=== PATIENT | female | born 1975 | race Caucasian/White ===

== ENCOUNTER 2016-06-07 19:27 | Inpatient (IN) | payer OTHER ==
--- NOTE | ~2016-06-07 | CN ---
Consultation Report [facility] [address] [place]. [address] NAME: CLAYTON BOSWELL : 71 STATUS : ADM IN PAT#: [id number] AGE: 40 ADM/REG DATE : 06/07/16 MR#: [id number] REPORT SERV DATE: 06/08/16 DICTATED BY: HE PASTOR DATE: 06/08/16 REPORT STATUS : Draft TRANSCRIBED BY: MODL DATE: 06/08/16 GI CONSULTATION DATE OF CONSULTATION: 06/08/2016 REASON FOR CONSULTATION: Evaluation and management of abdominal pain, abnormal CT scan. HISTORY OF PRESENT ILLNESS: Ms. Boswell is a very pleasant 40-year-old, female patient, who was admitted to [facility] on the with a chief complaint of abdominal pain. The patient gives a history of symptom onset was actually December 2015 with some vague intermittent abdominal discomfort. She states that it progressively worsened. She saw her primary care provider in February when she had a routine yearly physical. She mentioned this to her provider. She stated at that time she would have abdominal pain. If she could not make it to the bathroom, she would throw up. She states that she has had a change in her bowel habits with her having to go more often, but she states that she has not had any diarrhea or constipation. There has been normal formed stool. She states that some days she has small frequent bowel movements. Other day, she has very large bowel movements. She has seen some bright red blood per rectum, but attributed this to hemorrhoids as that is what typically happen when she was with her children, so therefore she thought that was all secondary to hemorrhoids. She states that her appetite has changed as well as she had changed to what she was eating thinking that it could be contributing to her abdominal discomfort. She states that her weight is stable. She has not had fever or chills, but secondary to progression of her abdominal pain, she went to the emergency room last Wednesday at [facility]. She had a CT scan done there. She had a contrast exam here on 06/07/2016. On that exam, it showed a 3 cm long circumferential mass-like lesion at the mid sigmoid colon suspicious for malignancy. No bowel obstruction was seen along with this. She had small volume ascites in the pelvis of uncertain clinical significance, but could represent some early malignant ascites as well as some multifocal soft tissue nodular densities throughout the anterior mesentery and probably involving the inferior omentum largest measuring 4.5 x 2.3 x 3.2 cm which was suspicious for metastatic disease. The patient had a CEA level of 66.8, CA 19-9 level of 90.9. She was admitted secondary to intractable pain. She was supposed to be seen in the office today by Dr. Justin Johns's nurse practitioner, Tania Nicole; however, secondary to the pain, she came to [facility]. I have seen the patient. I have discussed with her colonoscopy. She feels like she can prep for the exam. I did discuss risks, benefits, alternatives, and complications with her to include, but not limited to risk of bleeding, perforation, infection, reaction to medication, as well as cardiac and pulmonary side effects. She gives consent to proceed. PAST MEDICAL HISTORY: Positive for mitral valve prolapse, migraine headaches, depression, anxiety, degenerative joint disease, osteoarthritis, and tobacco abuse. PAST SURGICAL HISTORY: Right and left knee scoping, carpal tunnel surgery, as well as tubal ligation. Consultation Report [address] [place]. [address] NAME: CLAYTON BOSWELL : 71 STATUS : ADM IN [facility]#: [id number] AGE: 40 ADM/REG DATE : 06/07/16 MR#: [id number] REPORT SERV DATE: 06/08/16 DICTATED BY: HE PASTOR DATE: 06/08/16 REPORT STATUS : Draft TRANSCRIBED BY: SAW DATE: 06/08/16 SOCIAL HISTORY: Positive for tobacco. Negative for alcohol. Negative for illicits. She is employed. She has four biological children and one stepchild. FAMILY HISTORY: Colon polyps in her mother as well as diverticulosis. ALLERGIES: NO KNOWN ALLERGIES. HOME MEDICATIONS: Xanax, Bentyl, [place], Afrin, Topamax, Effexor. REVIEW OF SYSTEMS: A 10-point review of systems has been obtained with pertinent positives being addressed in the history of present illness. PERTINENT LABORATORY DATA: Sodium 140, potassium 3.6, BUN is 6, creatinine 1. White count 9.1, hemoglobin 13.6, hematocrit is 40.7, platelet count 255. INR of 1.1. Albumin 3.4. CEA 66.8. CA 19-9 of 90.9. PHYSICAL EXAMINATION: VITAL SIGNS: Temperature is 98.7, pulse 68, respirations 18, blood pressure 104/58. NEURO: Reveals an alert, female, resting in bed with no focal deficits. GENERAL: Cooperative, in no apparent distress. Awake, alert, oriented x3. HEAD, EARS, EYES, NOSE, AND THROAT: Anicteric. Pupils equal, round, reactive to light, and accommodation. Normocephalic and atraumatic. NECK: No JVD. No palpable nodes. LUNGS: Clear anteriorly with normal respiratory effort exhibited. Equal expansion. CARDIOVASCULAR SYSTEM: Regular rate and rhythm. S1 and S2. No murmurs, rubs, gallops, S3, or S4 appreciated. ABDOMEN: Soft, but mildly distended with moderate diffuse tenderness to palpation. Hypoactive bowel sounds in all four quadrants. EXTREMITIES: No edema. Normal distal pulses. SKIN: Warm, dry, and intact. ASSESSMENT: 1. Sigmoid colon mass with questionable mesenteric implants by CT scan. 2. Abdominal pain. 3. Tobacco abuse. 4. Family history of colon polyps. 5. Elevated CA level. PLAN: 1. Clear liquid diet. 2. Colonoscopy on the . 3. Check a CA-125 level. 4. We will consult Dr. Perales at patient's request after colonoscopy is complete. Consultation Report [address] [place]. [address] NAME: CLAYTON BOSWELL : 71 STATUS : ADM IN [facility]#: [id number] AGE: 40 ADM/REG DATE : 06/07/16 MR#: [id number] REPORT SERV DATE: 06/08/16 DICTATED BY: HE PASTOR DATE: 06/08/16 REPORT STATUS : Draft TRANSCRIBED BY: SAW DATE: 06/08/16 5. We will follow up after colonoscopy with other recommendations. DIA/SAW RA Vogel / [id number] CC: Александр Blackman M.D.
--- NOTE | ~2016-06-07 | HP ---
History And Physical [address] [place]. [address] NAME: CLAYTON ZARATE : 71 STATUS : ADM IN PAT#: [id number] AGE: 40 ADM/REG DATE : 06/07/16 MR#: [id number] REPORT SERV DATE: 06/08/16 DICTATED BY: SKYLAR MCQUEEN DATE: 06/07/16 REPORT STATUS : Draft TRANSCRIBED BY: MODL DATE: 06/07/16 DATE OF ADMISSION: 06/07/2016 CHIEF COMPLAINT: Increased abdominal pain for about two weeks getting progressively worse over the last couple of days and a new diagnosed colonic mass on a CT scan. HISTORY OF PRESENT ILLNESS: This is a very pleasant 40-year-old female. She is a patient of Dr. John Mcgrath, her primary care provider. She has a history of migraine headaches, mitral valve prolapse, tobacco abuse, depression, and anxiety disorder. That she is telling me that for about a couple of months she has changes in her bowel habits, no really melena or hematochezia. She does have a history of hemorrhoidal bleed, and she occasionally was intermittently having some red blood per rectum, but for about two weeks, she started to experience left lower abdominal pain which she got progressively worse this week. She went to [facility] on . They have done a CT scan of the abdomen and pelvis. She was told that she has a colon mass which possible might be cancer and she has been referred to her primary care provider, Dr. Mcgrath, who actually made an appointment with Dr. Justin Johns for 06/08/2016, to be evaluated. However, her abdominal pain became so severe and uncontrolled that she has to come to the hospital. There was no nausea or vomiting. No fever. No diarrhea, some constipation. No cough. No sputum production. No chest pain. No increasing shortness of breath. There was no loss of the weight. No recent hospitalization either. She has been evaluated in the emergency room and CT of the abdomen and pelvis with oral and IV contrast has been repeated and after initial evaluation, Hospitalist Service has been asked for admission, further evaluation, and treatment. PAST MEDICAL HISTORY: Significant for mitral valve prolapse, migraine headaches, tobacco abuse, depression with anxiety, degenerative joint disease, osteoarthritis. PAST SURGICAL HISTORY: Include right and left knee scope, carpal tunnel, and tubal ligation. SOCIAL HISTORY: She is a smoker for at least 50 years. No alcohol. No IV drugs. ALLERGIES: THE PATIENT DOES NOT HAVE ANY DRUG ALLERGIES. MEDICATIONS: At home would include Xanax, Bentyl, [place], Afrin, Topamax, and Effexor. REVIEW OF SYSTEMS: A 14-point review of systems has been obtained. FAMILY HISTORY: Significant for precancerous polyps as well as hypertension. REVIEW OF SYSTEMS: 14-point review of systems has been obtained and pertinent positive has been listed into the history of present illness. Otherwise, negative except those underlying above. PHYSICAL EXAMINATION: VITAL SIGNS: Currently: the Patient is afebrile. Blood pressure 132/77, heart rate 102, History And Physical [address] [place]. [address] NAME: CLAYTON ZARATE : 71 STATUS : ADM IN [facility]#: [id number] AGE: 40 ADM/REG DATE : 06/07/16 MR#: [id number] REPORT SERV DATE: 06/08/16 DICTATED BY: SKYLAR MCQUEEN DATE: 06/07/16 REPORT STATUS : Draft TRANSCRIBED BY: SAW DATE: 06/07/16 respiratory rate 16, and saturating 98% on room air. GENERAL: She is a very pleasant, somewhat anxious female, in no acute distress. She is alert and oriented x3. Nonfocal. She follows commands appropriately. HEENT: Show pupils equal, round, reactive to light. Extraocular movements intact. No JVD. No lymphadenopathy. No thyromegaly appreciated. CHEST: Eval shows bilateral air entry. Clear anteroposterior. No wheezes, crackles, or rhonchi appreciated. CARDIOVASCULAR: She has regular rate and rhythm. She is slightly tachycardic. S1, S2 positive. No S3, no S4. No murmurs, rubs, or gallops appreciated. ABDOMEN: Soft. There is tender on the left lower quadrant, but there is no guarding and no rebound. EXTREMITIES: No clubbing, cyanosis, or edema. NEUROLOGY: The patient is alert and oriented x3. Nonfocal. She follows commands appropriately. LABORATORY DATA: Labs from today include sodium 141, potassium 4.2, chloride 109, CO2 of 25, BUN 7, creatinine0.78, glucose is 98. Her albumin 3.6, globulin 3.9. Her total bilirubin 0.3, alkaline phosphatase 95, ALT 52, AST 42, lipase 67. Her white count is 9.2, hemoglobin 14.5, hematocrit 42.5, and platelets are 273. Her UA has been negative. There is a CT scan of the abdomen and pelvis with oral and IV contrast performed in the emergency room which does show that the patient has a 3 cm long circumferential mass-like lesion in the mid sigmoid colon. No bowel obstruction. No perforation. There is some retained fecal material proximal to the colon, small volume of ascites and multifocal soft tissue nodular densities throughout the anterior mesentery, probably involving the omentum suspicious for metastatic disease. There is diverticulosis, but no diverticulitis and small fat-containing umbilical hernia. ASSESSMENT AND PLAN: This is a very pleasant 40-year-old female, presenting to [facility] with abdominal pain with: 1. New diagnosis sigmoid mass with possible mesenteric implants. 2. Intractable abdominal pain secondary to sigmoid mass with possible mesenteric implants. 3. History of migraine headaches. 4. Depression with anxiety. 5. Tobacco abuse. PLAN: The patient is going to be admitted to Hospitalist Service. We are going to keep her on clear liquid diet for right now, IV fluids. We will check a CEA and provide symptomatic nausea and pain control. We are going to consult Dr. Justin Johns, Gastroenterology, for further recommendation. I talked personally with Dr. Hillary Burdick, Gastroenterology, who covers for Dr. Johns, which recommended for right now keep the patient on clear liquid diet and await Gastroenterology for evaluation in the morning. 1. Intractable abdominal pain secondary to above. We will provide pain control. 2. History of migraine headaches. We will continue her home medications. 3. Depression with anxiety. Continue her home medication p.r.n. Xanax. 4. Tobacco abuse. We are going to provide nicotine patch and tobacco cessation education has been provided to the patient as well. That has been discussed extensively with the History And Physical [address] [place]. [address] NAME: CLAYTON ZARATE : 71 STATUS : ADM IN PAT#: [id number] AGE: 40 ADM/REG DATE : 06/07/16 MR#: [id number] REPORT SERV DATE: 06/08/16 DICTATED BY: SKYLAR MCQUEEN DATE: 06/07/16 REPORT STATUS : Draft TRANSCRIBED BY: MODDolly DATE: 06/07/16 patient as well as the patient's . All the questions have been answered in full. Further workup and recommendation pending above. It is worthwhile to note that the patient is going to be followed up by Dr. Phil Kumar. CF/SAW Skylar Mcqueen M.D. / [id number] CC: Diallo Mcgrath M.D.
--- NOTE | ~2016-06-07 | CN ---
Consultation Report [facility] [address] [place]. [address] NAME: CLAYTON ZARATE : 71 STATUS : ADM IN [facility]#: [id number] AGE: 40 ADM/REG DATE : 06/07/16 MR#: [id number] REPORT SERV DATE: 06/09/16 DICTATED BY: JULIO STRANGE III DATE: 06/09/16 REPORT STATUS : Draft TRANSCRIBED BY: MODDolly DATE: 06/09/16 CONSULTATION NOTE DATE OF CONSULTATION: 06/09/2016 REASON FOR CONSULT: 1. Sigmoid colon mass. 2. Recommendation regarding surgical management. HISTORY OF PRESENT ILLNESS: I have been asked to see this 40-year-old female hospitalized for the above reasons. The patient was admitted through the emergency room on 06/07/2016 with increasing abdominal pain. The patient complains of severe abdominal pain, which began several months ago. She has had some rectal bleeding. She had a colonoscopy on this admission which shows an obstructing large mass in the sigmoid colon. The colonoscope could not pass through this. The patient has had some nausea and vomiting. She went to the emergency room at [facility] last week. This was because of severe abdominal pain. CT scan of the abdomen and pelvis at that institution shows sigmoid colon mass with nodularity in the peritoneum concerning for peritoneal carcinomatosis. The patient is scheduled to undergo colonoscopy this week, but her pain became so severe that she came to the emergency room. CT scan of the abdomen and pelvis was performed here, which shows again a 3 cm mass in the sigmoid colon with possible dilatation of the colon proximal to this, thought to be a malignant mass. There is noted to be a small amount of ascites in the pelvis with multiple nodular areas in the anterior mesentery and inferior omentum, the largest being 4.5 cm in size, concern for metastatic disease. Colonoscopy performed this admission shows a large partially obstructing fungating oozing mass in the sigmoid colon 25 cm proximal to the anus. The colonoscope could not pass proximal to this. PAST MEDICAL HISTORY: 1. Mitral valve prolapse. 2. Anxiety. 3. Bipolar disorder. 4. Migraine headaches. 5. Depression. 6. Degenerative joint disease. PAST SURGICAL HISTORY: Includes tubal ligation, bilateral knee scoping, and bilateral carpal tunnel syndrome release surgery. SOCIAL HISTORY: The patient is . She lives locally. She has five children. She has a history of tobacco abuse. Consultation Report [address] [facility] [place]. [address] NAME: CLAYTON ZARATE : 71 STATUS : ADM IN [facility]#: [id number] AGE: 40 ADM/REG DATE : 06/07/16 MR#: [id number] REPORT SERV DATE: 06/09/16 DICTATED BY: JULIO STRANGE III DATE: 06/09/16 REPORT STATUS : Draft TRANSCRIBED BY: SAW DATE: 06/09/16 MEDICATIONS: Folic acid, heparin, nicotine patch, Protonix, thiamine, Topamax, Effexor, Dilaudid, Zofran, Xanax, Bentyl, and Colace. ALLERGIES: NONE. FAMILY HISTORY: Positive for breast cancer. PHYSICAL EXAMINATION: GENERAL: This is a female, in no acute distress. She is alert and oriented x3. VITAL SIGNS: Blood pressure 124/60, pulse 76, and temperature 98.6. HEENT: Unremarkable. Cranial nerves II through XII are normal. LUNGS: Clear. CARDIAC: Normal. ABDOMEN: Soft and nontender. LABORATORY DATA: Colonoscopy and imaging are as above. CT scan of chest is pending. ASSESSMENT: 1. A 40-year-old female with large obstructing mass in the sigmoid colon, most likely malignant with carcinomatosis. 2. History of tobacco abuse. 3. Probable chronic obstructive pulmonary disease. PLAN: I have recommended sigmoid colectomy. Colostomy may be required if the patient's bowel prep does not appear to be adequate. This procedure, i.e., laparotomy with sigmoid colectomy, possible laparotomy, the risks, benefits, and alternatives, including but not limited to the risk for bleeding, infection, enterotomy, injury to any abdominal structure, postop small bowel obstruction, ileus, incisional hernia, dehiscence, anastomotic leak, requiring reoperation with colostomy, possible need for colostomy at the time of surgery, ureteral injury, and unforeseen complications including deep venous thrombosis, pulmonary embolus, myocardial infarction, stroke, pneumonia, and , have been fully explained to the patient and family prior to surgery. The fact that this is a major operation with risk for major morbidity and mortality has been explained. The expected length of recovery has been explained. The patient's questions have been answered. She clearly understands the risks and agrees to surgery as planned. CHUCKIE/SAW Julio Strange III, M.D. / [id number] Consultation Report [address] [place]. [address] NAME: CLAYTON ZARATE : 71 STATUS : ADM IN PAT#: [id number] AGE: 40 ADM/REG DATE : 06/07/16 MR#: [id number] REPORT SERV DATE: 06/09/16 DICTATED BY: JULIO STRANGE III DATE: 06/09/16 REPORT STATUS : Draft TRANSCRIBED BY: SAW DATE: 06/09/16 CC: Vernon Avendano M.D.
--- NOTE | ~2016-06-07 | DS ---
Discharge Summary [address] [facility] [place]. [address] NAME: CLAYTON ZARATE : 71 STATUS : DIS IN PAT#: [id number] AGE: 40 ADM/REG DATE : 06/07/16 MR#: [id number] REPORT SERV DATE: 06/16/16 DICTATED BY: NGA CABA DATE: 06/15/16 REPORT STATUS : Draft TRANSCRIBED BY: SAW DATE: 06/15/16 ADMISSION DATE: 06/07/2016 DISCHARGE DATE: 06/15/2016 DISCHARGE DIAGNOSES: 1. Sigmoid mass, new diagnosis invasive adenocarcinoma. 2. Status post sigmoid colectomy with colostomy on 06/10/[address] Varela. 3. Abdominal pain due to sigmoid mass and status post sigmoid colectomy with colostomy. 4. Depression/anxiety. 5. Tobacco dependency. CONSULTATIONS: 1. GI, RA Vogel, on 06/08/2016. 2. Surgery, Hieu Varela M.D., on 06/09/2016. IMAGING AND PROCEDURES: 1. CT abdomen and pelvis, 06/07/2016. Impression: A 3 cm long circumferential mass like lesion at the mild sigmoid colon, suspicious for malignancy until proven otherwise. No associated bowel obstruction pattern, although there is a moderate retained fecal material within the more proximal colon. It represents clinical significant fecal stasis in the appropriate clinical setting. Small volume ascites in the pelvis of uncertain clinical significance, although may represent early malignant ascites. Multifocal soft tissue nodule disease throughout the anterior mesentery and probably involving the inferior omentum, largest measuring up to 4.5 x 2.3 x 3.2 cm suspicious for metastatic disease. Mild diverticulosis sigmoid colon, no acute diverticulitis pattern. Small fat containing umbilical hernia. 2. Chest x-ray, 06/08/2016. Impression: Expiratory film. No airspace disease. 3. CT chest, 06/09/2016. Impression: No evidence of pulmonary metastasis. Mild interstitial thickening with borderline cardiomegaly suggesting potential heart failure with interstitial edema. Increasing upper abdominal ascites. 4. Colonoscopy, 06/09/2016. Impression: A likely malignant partially obstructing tumor at 25 cm proximal to the anus. Biopsy. Exam was otherwise normal on direct and retroflexion views. 5. Sigmoid colectomy with colostomy with Nghia's pouch, partially omentectomy and right oophorectomy on 06/10/[address] Varela. COURSE IN THE HOSPITAL: Please refer to history and physical dictated by Dr. Skylar Malik on 06/07/2016 for complete admission details as well as consultation note by Joey Trevino and Dr. Varela. This patient is a 40-year-old female, who presented to [facility] with complaints of increased lower abdominal pain. The patient states at that time that she had been having pain for the past several months, but has increased over the past several days to the point that she felt she needed to be re-evaluated in the emergency room. 1. Sigmoid mass with new diagnosis of invasive adenocarcinoma. As noted above, imaging was obtained. GI was consulted. Colonoscopy was attempted, mass noted. Dr. Varela Discharge Summary [address] [place]. [address] NAME: CLAYTON ZARATE : 71 STATUS : DIS IN PAT#: [id number] AGE: 40 ADM/REG DATE : 06/07/16 MR#: [id number] REPORT SERV DATE: 06/16/16 DICTATED BY: NGA CABA DATE: 06/15/16 REPORT STATUS : Draft TRANSCRIBED BY: SAW DATE: 06/15/16 was consulted, and evaluated. The patient did undergo a sigmoid colectomy with colostomy on 06/10/2016. The patient did tolerate well and will be discharged home to follow up outpatient with Dr. Varela. Arrangements have been made for the patient to follow up with Dr. Perales outpatient. Ostomy care has been provided, prescriptions for supplies have been also provided. The patient did decline on home health to follow at this time. 2. Status post sigmoid colectomy and colostomy by Dr. Varela. As noted above, the patient did tolerate procedure well, and will follow up outpatient with Dr. Varela. 3. Abdominal pain due to sigmoid mass and status post sigmoid colectomy with colostomy. The patient did have intolerable pain upon admission. At this time following surgery the patient has been able to tolerate oral narcotics. She will be sent home with Percocet 10/325 mg, #30, and will follow up with Dr. Varela as directed. 4. Depression and anxiety. The patient has been stable, will continue on home medications upon discharge. 5. Status post colonoscopy on 06/09/[address] Gonzalez. The patient did tolerate the procedure. The findings are as noted above. 6. Tobacco abuse. The patient has been using a nicotine patch, so this will be encouraged to continue at home. DISCHARGE MEDICATIONS: 1. Multivitamin over the counter. 2. Nicotine transdermal over the counter. 3. Topamax 100 mg one p.o. at bedtime. 4. Effexor 150 mg one p.o. at bedtime. 5. Xanax 0.25 mg p.o. three times a day p.r.n. for anxiety. 6. Hydrocodone 5/325 mg one p.o. every 3 hours p.r.n. for pain. 7. Afrin nasal spray, two to three sprays in both nostrils p.r.n. 8. Percocet 10/325 mg one p.o. every 4 hours p.r.n. for pain. DISPOSITION: The patient is being discharged home in hemodynamically stable condition. She will follow up with Dr. Varela as directed and a followup appointment will be made with Dr. Perales for the patient to follow. Again, the patient did decline on home health at this time. This discharge took greater than 30 minutes. /SAW Nga Caba NP / [id number] CC: Lorenzo Mitchell MD Discharge Summary [address] [address] NAME: CLAYTON ZARATE : 71 STATUS : DIS IN PAT#: [id number] AGE: 40 ADM/REG DATE : 06/07/16 MR#: [id number] REPORT SERV DATE: 06/16/16 DICTATED BY: NGA CABA DATE: 06/15/16 REPORT STATUS : Draft TRANSCRIBED BY: SAW DATE: 06/15/16 Diallo Mcgrath M.D.
--- NOTE | ~2016-06-07 | EGD ---
EGD REPORT [facility] [address] [place]. [address] NAME: CLAYTON BOSWELL : 71 STATUS : DIS IN PAT#: [id number] AGE: 40 ADM/REG DATE : 06/07/16 MR#: [id number] REPORT SERV DATE: 06/16/16 DICTATED BY: JEFFY BOLANOS DATE: 06/16/16 REPORT STATUS : Draft [facility] DATE: 06/16/16 Endoscopy Center Patient Name: Clayton Boswell Date of : 1975 Attending MD: JEFFY BOLANOS MD Procedure Date No Time: 06/09/2016 Procedure: Colonoscopy Indications: Abnormal CT of the GI tract Medicines: Monitored Anesthesia Care Complications: No immediate complications. Estimated blood loss: Minimal. Procedure: After I obtained informed consent, the scope was passed under direct vision. Throughout the procedure, the patient's blood pressure, pulse, and oxygen saturations were monitored continuously. The CF [id number] was introduced through the anus with the intention of advancing to the cecum. The scope was advanced to the sigmoid colon before the procedure was aborted. Medications were given. The colonoscopy was performed without difficulty. The patient tolerated the procedure well. The quality of the bowel preparation was good. Findings: The perianal and digital rectal examinations were normal. Pertinent negatives include no palpable rectal lesions. A fungating partially obstructing large mass was found at 25 cm proximal to the anus. The mass was circumferential. Oozing was present. Biopsies were taken with a cold forceps for histology. Area was successfully injected with 7 mL Spot (carbon black) for tattooing. Estimated blood loss was minimal. Unable to pass the scope beyond this point. The exam was otherwise without abnormality on direct and retroflexion views. Impression: - Likely malignant partially obstructing tumor at 25 cm proximal to the anus. Biopsied. Biopsied. Injected. - The examination was otherwise normal on direct and retroflexion views. Recommendation: - Return [facility]. - Refer to a colo-rectal surgeon today. - Perform CT scan (computed tomography) of the chest with contrast today. - Check CEA today. Procedure Code(s): --- Professional --- EGD REPORT [address] [place]. [address] NAME: CLAYTON BOSWELL : [birth year] STATUS : DIS IN PAT#: [id number] AGE: 40 ADM/REG DATE : 06/07/16 MR#: [id number] REPORT SERV DATE: 06/16/16 DICTATED BY: JEFFY BOLANOS DATE: 06/16/16 REPORT STATUS : Draft TRANSCRIBED BY: [facility] DATE: 06/16/16 [id number], 52, Colonoscopy, flexible, proximal to splenic flexure; with biopsy, single or multiple [id number], 52, Colonoscopy, flexible, proximal to splenic flexure; with directed submucosal injection(s), any substance Diagnosis Code(s): --- Professional --- D49.0, Neoplasm of unspecified behavior of digestive system R93.3, Abnormal findings on diagnostic imaging of other parts of digestive tract CPT copyright 2013 [employer]. All rights reserved. The codes documented in this report are preliminary and upon lumber sorter review may be revised to meet current compliance requirements. Jeffy Bolanos MD JEFFY BOLANOS MD 06/09/2016 8:18 AM This report has been signed electronically. Number of Addenda: 0 Note Initiated On: 06/09/2016 7:26 AM Scope Withdrawal Time 0 hours 0 minutes 0 seconds [address] [place] [address]
--- NOTE | ~2016-06-07 | EGD ---
EGD REPORT [facility] [address] [place]. [address] NAME: CLAYTON BOSWELL : 71 STATUS : ADM IN PAT#: [id number] AGE: 40 ADM/REG DATE : 06/07/16 MR#: [id number] REPORT SERV DATE: 06/09/16 DICTATED BY: JEFFY BOLANOS DATE: 06/09/16 REPORT STATUS : Draft [facility]ANSCRIBED BY: [facility] DATE: 06/09/16 Endoscopy Center Patient Name: Clayton Boswell Date of : 1975 Attending MD: JEFFY BOLAONS MD Procedure Date No Time: 06/09/2016 Procedure: Colonoscopy Indications: Abnormal CT of the GI tract Medicines: Monitored Anesthesia Care Complications: No immediate complications. Estimated blood loss: Minimal. Procedure: After I obtained informed consent, the scope was passed under direct vision. Throughout the procedure, the patient's blood pressure, pulse, and oxygen saturations were monitored continuously. The CF [id number] was introduced through the anus with the intention of advancing to the cecum. The scope was advanced to the sigmoid colon before the procedure was aborted. Medications were given. The colonoscopy was performed without difficulty. The patient tolerated the procedure well. The quality of the bowel preparation was good. Findings: The perianal and digital rectal examinations were normal. Pertinent negatives include no palpable rectal lesions. A fungating partially obstructing large mass was found at 25 cm proximal to the anus. The mass was circumferential. Oozing was present. Biopsies were taken with a cold forceps for histology. Area was successfully injected with 7 mL Spot (carbon black) for tattooing. Estimated blood loss was minimal. Unable to pass the scope beyond this point. The exam was otherwise without abnormality on direct and retroflexion views. Impression: - Likely malignant partially obstructing tumor at 25 cm proximal to the anus. Biopsied. Biopsied. Injected. - The examination was otherwise normal on direct and retroflexion views. Recommendation: - Return patient to [facility] for [facility] care. - Refer to a colo-rectal surgeon today. - Perform CT scan (computed tomography) of the chest with contrast today. - Check CEA today. Procedure Code(s): --- Professional --- EGD REPORT [address] [place]. [address] NAME: CLAYTON BOSWELL : [birth year] STATUS : ADM IN [facility]#: [id number] AGE: 40 ADM/REG DATE : 06/07/16 MR#: [id number] REPORT SERV DATE: 06/09/16 DICTATED BY: JEFFY BOLANOS DATE: 06/09/16 REPORT STATUS : Draft TRANSCRIBED BY: [facility] DATE: 06/09/16 [id number], 52, Colonoscopy, flexible, proximal to splenic flexure; with biopsy, single or multiple 69713, 52, Colonoscopy, flexible, proximal to splenic flexure; with directed submucosal injection(s), any substance Diagnosis Code(s): --- Professional --- D49.0, Neoplasm of unspecified behavior of digestive system R93.3, Abnormal findings on diagnostic imaging of other parts of digestive tract CPT copyright 2013 [employer]. All rights reserved. The codes documented in this report are preliminary and upon infrastructure tech review may be revised to meet current compliance requirements. Jeffy Bolanos MD JEFFY BOLANOS MD 06/09/2016 8:18 AM This report has been signed electronically. Number of Addenda: 0 Note Initiated On: 06/09/2016 7:26 AM Scope Withdrawal Time 0 hours 0 minutes 0 seconds [address] [place] [address]
--- NOTE | ~2016-06-07 | OP ---
Record Of Operation [facility] [address] [place]. [address] NAME: CLAYTON ZARATE : [birth year] STATUS : ADM IN PAT#: [id number] AGE: 40 ADM/REG DATE : 06/07/16 MR#: [id number] REPORT SERV DATE: 06/10/16 DICTATED BY: JULIO STRANGE III DATE: 06/10/16 REPORT STATUS : Draft TRANSCRIBED BY: MODL DATE: 06/10/16 DATE OF PROCEDURE: 06/10/2016 PREOPERATIVE DIAGNOSIS: Obstructing cancer of the sigmoid colon with probable carcinomatosis. POSTOPERATIVE DIAGNOSIS: Obstructing cancer of the sigmoid colon with probable carcinomatosis, obstruction of the sigmoid colon secondary to large sigmoid colon cancer, with diffuse widespread carcinomatosis. PROCEDURE: Sigmoid colectomy with colostomy and Nghia's pouch, partial omentectomy and right oophorectomy. SURGEON: Julio Strange M.D. ANESTHESIA: General with intubation. COMPLICATIONS: None. ESTIMATED BLOOD LOSS: 50 mL. SPECIMEN: Sigmoid colon, right ovary, and portion of omentum. DRAINS: Maria D in subcutaneous tissue. LAP AND SPONGE COUNT: Correct x3. BRIEF HISTORY: This is a 40-year-old female who had been admitted to the hospital emergently on 06/07/2016 with evidence for colon obstruction. Her workup showed an obstructing mass of the sigmoid colon. The colonoscope could not pass through the sigmoid colon. This was associated with nausea, vomiting, and weight loss. Her workup showed evidence for probable carcinomatosis with probable omental implants and ascites. It was felt that a sigmoid colectomy with possible colostomy, depending on operative findings was indicated. It was explained to the patient that due to the fact that she was obstructed and could not undergo adequate bowel prep, and due to the fact that she likely had carcinomatosis, and the primary anastomosis would be at increased risk for leakage and that a colostomy would likely be required, depending on operative findings. Regarding the surgery, the procedure, risks, benefits, and alternatives, including not limited to the risk for bleeding, infection, enterotomy, injury to any abdominal structure, postop small bowel obstruction, ileus, incisional hernia, dehiscence, anastomotic leak, requiring reoperation, colostomy, ureteral injury, and unforeseen complications including deep venous thrombosis, pulmonary embolus, myocardial infarction, stroke, pneumonia, and , were fully and completely explained to the patient and family at length prior to surgery. The fact that this was a major operation with risk for major morbidity and mortality was explained. The expected length of recovery was explained, possibly a leakage of ascites which was seen on CT scan through her incision was explained. The patient had questions, which were answered. She fully understood the Record Of Operation [address] [place]. [address] NAME: CLAYTON ZARATE : [birth year] STATUS : ADM IN PAT#: [id number] AGE: 40 ADM/REG DATE : 06/07/16 MR#: [id number] REPORT SERV DATE: 06/10/16 DICTATED BY: JULIO STRANGE III DATE: 06/10/16 REPORT STATUS : Draft TRANSCRIBED BY: SAW DATE: 06/10/16 risks and agreed to surgery as planned. FINDINGS: The patient had extremely large, primary cancer of the sigmoid colon with obstruction of the colon which was somewhat dilated proximal to this. She had widespread diffuse carcinomatosis with peritoneal implants on the visceral and parietal peritoneum as well as the mesentery to the bowel and omentum. It was felt that sigmoid colectomy is indicated because of the patient's obstruction, although clearly this would not likely change her survival. DESCRIPTION OF PROCEDURE: After being properly identified, and after discussing the risks and benefits of the surgery with the patient and family again in the preoperative area, she was taken to the operating room and placed in the supine position on the operating room table. General anesthesia was administered. She was intubated without difficulty. A Bauman catheter was inserted. Her legs were placed in stirrups. They were appropriately and carefully padded and protected. The abdomen was prepped and draped sterilely in usual fashion. After an appropriate "time-out" per for JCAHO standards, a midline incision was made from the umbilicus to the pubis. The incision was continued through the subcutaneous tissue. Hemostasis was controlled with electrocautery. The incision was continued through the fascia. The abdominal cavity was entered. A large amount of clear ascites came from the abdominal cavity. It was immediately noted that the patient had diffuse carcinomatosis. The omentum had omental caking with obvious malignancy throughout the omentum. There was peritoneal implants on the visceral and the parietal peritoneum throughout the abdominal wall and throughout the abdominal cavity. There was multiple implants on the cirrhosis of the colon and on the mesentery of the colon. There was an extremely large cancer located in the sigmoid colon with the colon being dilated proximal to this. The appropriate retractors were placed to allow for adequate exposure. Using sharp dissection, peritoneal reflection to the sigmoid colon was divided along the line of Toldt. The colon was mobilized medially. It was noted that the mesentery was markedly thickened consistent with metastatic disease. We selected a point for division of the proximal sigmoid colon, proximal to the tumor, near its junction with the left colon. A window was made in the mesentery of the colon at this point. The colon was divided with the JUDITH stapler. We then selected a point for division of the sigmoid colon distally, distal to the obstruction, above the peritoneal reflection. A contour stapler was used to divide the colon at this point. The mesentery to this portion of the sigmoid colon was then divided using Harmonic scalpel. This was done along the base of the mesentery. This portion of the sigmoid colon was sent for permanent pathology. It was my judgment that based on the fact the patient did have adequate bowel prep due to her obstruction due to the diffuse carcinomatosis and peritoneal implants, including those in the vicinity of the anastomosis, primary anastomosis would not be indicated because of the high risk for leakage. Therefore, it was felt that a diverting colostomy would be most appropriate again, because I was concerned about the possibility of anastomotic leak because of the risk factors as described. It should be noted there was peritoneal implants on the serosa of the colon proximally and distally as well as implants in the mesentery. Record Of Operation [facility] [address] [place] [place]. [address] NAME: CLAYTON ZARATE : [birth year] STATUS : [facility]M [facility] [id number] AGE: 40 ADM/REG DATE : 06/07/16 MR#: [id number] REPORT SERV DATE: 06/10/16 DICTATED BY: JULIO STRANGE III DATE: 06/10/16 REPORT STATUS : Draft TRANSCRIBED BY: MODL DATE: 06/10/16 For this reason, divided sigmoid colon or Nghia's pouch was secured to the left lateral abdominal wall with a #1 Prolene suture. It was marked with a suture to allow for possible colostomy closure. It should be noted that the patient's right ovary was markedly distended and had changes consistent with probable metastatic disease. It was felt that this was in danger of rupture based on the size of this and therefore, a partial omentectomy and section of the fallopian tube were performed. This was performed by dividing the vascular attachments to the ovary and fallopian tube with the Harmonic scalpel. The ovarian artery and vein were isolated, ligated, and divided. They were ligated with 2-0 silk ligatures. All the avascular attachments were divided. In this way, the right ovary and tube were removed. The left colon was mobilized by dividing the peritoneal flexion along the line of Toldt and mobilizing the colon medially. A circular incision was then made in the left lower quadrant of the abdominal wall. The divided end of the left colon was brought through this as a colostomy. The abdominal cavity was irrigated copiously with saline. Hemostasis was assured. The fascia was closed with a running looped #1 PDS suture and the subcutaneous tissue was closed with running 3-0 chromic suture over a Maria D drain which was brought out through the inferior aspect of the incision. The skin was closed with a running subcuticular 4-0 Monocryl stitch. We then turned our attention to the colostomy. The end of the left colon was brought through the incision made in the left lower quadrant. The stapled end of the left colon was excised. The stoma was then secured to the skin with interrupted 3-0 chromic sutures. This resulted in good stoma which was pink and viable and patent to palpation. Dressings and a stoma appliance were applied. Anesthesia was reversed. The patient was taken to the recovery room in stable condition. She tolerated the procedure well. Her family was informed results of surgery. I have explained to the patient's family that generally this is an incurable process that she will definitely need to consider chemotherapy once she has recovered from her surgery. CHUCKIE/SAW Julio Strange III, M.D. / [id number] CC: MD Diallo Silva M.D.
[2016-06-07 17:09] LABS: BASOPHILS 0.5 %; BASOPHILS ABSOLUTE 0.05 10/3/uL (0.0-0.16); EOSINOPHILS 2.8 %; EOSINOPHILS ABSOLUTE 0.26 10/3/uL (0.0-0.53); ER CBC TAT 0 Hrs 05 Mins; HEMATOCRIT 42.5 % (36.0-48.0); HEMOGLOBIN 14.5 g/dL (12.0-16.0); IMMATURE GRANULOCYTES 0.1 %; IMMATURE GRANULOCYTES ABSOLUTE 0.01 10/3/uL (0.0-0.11); LYMPHOCYTES 28.9 %; LYMPHOCYTES ABSOLUTE 2.66 10/3/uL (0.67-4.30); MEAN CORPUS HGB CONC 34.1 g/dL (32.0-36.0); MEAN CORPUSCULAR HEMOGLOB 30.6 pg (26.0-34.0); MEAN CORPUSCULAR VOLUME 89.7 fL (80-100); MEAN PLATELET VOLUME 10.3 fL (9.2-13.0); MONOCYTES 5.4 %; NEUTROPHILS 62.3 %; NEUTROPHILS ABSOLUTE 5.74 10/3/uL (2.02-8.40); PLATELET COUNT 273 10/3/uL (150-400); RBC DISTRIBUTION WIDTH 13.7 % (12.0-16.0); RED CELL COUNT 4.74 10/6/uL (4.0-5.6); WHITE BLOOD CELLS 9.2 10/3/uL (4.5-10.5)
[2016-06-07 17:10] LABS: MANUAL DIFF NO %
[2016-06-07 17:11] LABS: ASCORBIC ACID (UR NOT ORDER) NEG (NEG); BILIRUBIN, URINE NEGATIVE (NEG); ER URINALYSIS TAT 0 Hrs 08 Mins; KETONE, URINE NEGATIVE (NEG); LEUKOCYTE ESTERASE(NOT OR TRACE (NEG); NITRITE (URINE) NEG (NEG); WBC (NOT ORDERED) (RFLEX) 3 (0-5)
[2016-06-07 17:28] LABS: A/G RATIO 0.9 (0.7-1.9); ALBUMIN 3.6 G/DL (3.5-5.0); ALKALINE PHOSPHATASE 95 U/L (45-117); BUN (BLOOD UREA NITROGEN) 7 MG/DL (6-23); CALCIUM, SERUM 9.1 MG/DL (8.5-10.4); CHLORIDE, SERUM 109 MMOL/L (96-112); CO2 (CARBON DIOXIDE) 25 MMOL/L (24-34); CREATININE 0.78 MG/DL (0.55-1.02); GFR AFRICAN AMERICAN 109 ML/MIN (>=60); GFR NON AFRICAN AMERICAN 94 ML/MIN (>=60); GLOBULIN 3.9 G/DL (2.5-4.1); GLUCOSE, SERUM 98 MG/DL (60-99); POTASSIUM, SERUM 4.2 MMOL/L (3.5-5.3); SGOT(AST) 42 U/L (5-40); SGPT(ALT) 52 U/L (5-65); SODIUM, SERUM 141 MMOL/L (135-148); TOTAL BILIRUBIN 0.3 MG/DL (0-1.2); TOTAL PROTEIN 7.5 G/DL (6.0-8.5)
[2016-06-07] MEDS ORDERED: TOPAMAX100 PO (22:30)
[2016-06-07] MEDS ORDERED: EFFEXOR XR150 MG PO (22:30)
[2016-06-07] MEDS ORDERED: X25 PO (22:30)
[2016-06-07] MEDS ORDERED: BENTYL10 PO (22:31)
[2016-06-07] MEDS ORDERED: NORCO1 TA1 PO (22:31)
[2016-06-07] MEDS ORDERED: AFRIN15 NAS (22:37)
[2016-06-08 02:29] LABS: INTERNATIONAL NORMAL RATI 1.1 UNITS (-); PARTIAL THROMBO TIME 31.4 SEC (22.5-37.2); PROTIME (NOT ORD) 13.8 SEC (12.0-14.5)
[2016-06-08 02:43] LABS: CA-19-9 90.9 U/ML (< 37.0); PHOSPHORUS, SERUM 2.9 MG/DL (2.5-4.5)
[2016-06-08 02:48] LABS: CEA 66.8 NG/ML
[2016-06-08 05:56] LABS: BASOPHILS 0.3 %; BASOPHILS ABSOLUTE 0.03 10/3/uL (0.0-0.16); EOSINOPHILS 2.7 %; EOSINOPHILS ABSOLUTE 0.24 10/3/uL (0.0-0.53); HEMATOCRIT 40.7 % (36.0-48.0); HEMOGLOBIN 13.6 g/dL (12.0-16.0); IMMATURE GRANULOCYTES 0.2 %; IMMATURE GRANULOCYTES ABSOLUTE 0.02 10/3/uL (0.0-0.11); LYMPHOCYTES 24.9 %; LYMPHOCYTES ABSOLUTE 2.25 10/3/uL (0.67-4.30); MANUAL DIFF NO %; MEAN CORPUS HGB CONC 33.4 g/dL (32.0-36.0); MEAN CORPUSCULAR HEMOGLOB 30.3 pg (26.0-34.0); MEAN CORPUSCULAR VOLUME 90.6 fL (80-100); MEAN PLATELET VOLUME 10.5 fL (9.2-13.0); MONOCYTES 6.4 %; MONOCYTES ABSOLUTE 0.58 10/3/uL (0.21-1.20); NEUTROPHILS 65.5 %; NEUTROPHILS ABSOLUTE 5.93 10/3/uL (2.02-8.40); PLATELET COUNT 255 10/3/uL (150-400); RBC DISTRIBUTION WIDTH 13.8 % (12.0-16.0); RED CELL COUNT 4.49 10/6/uL (4.0-5.6); WHITE BLOOD CELLS 9.1 10/3/uL (4.5-10.5)
[2016-06-08 06:11] LABS: A/G RATIO 0.9 (0.7-1.9); ALBUMIN 3.4 G/DL (3.5-5.0); BUN (BLOOD UREA NITROGEN) 6 MG/DL (6-23); CHLORIDE, SERUM 108 MMOL/L (96-112); CO2 (CARBON DIOXIDE) 24 MMOL/L (24-34); GFR AFRICAN AMERICAN 80 ML/MIN (>=60); GFR NON AFRICAN AMERICAN 69 ML/MIN (>=60); GLOBULIN 3.8 G/DL (2.5-4.1); GLUCOSE, SERUM 93 MG/DL (60-99); POTASSIUM, SERUM 3.6 MMOL/L (3.5-5.3); SGOT(AST) 38 U/L (5-40); SGPT(ALT) 56 U/L (5-65); SODIUM, SERUM 140 MMOL/L (135-148); TOTAL BILIRUBIN 0.3 MG/DL (0-1.2); TOTAL PROTEIN 7.2 G/DL (6.0-8.5)
[2016-06-08 06:13] LABS: ALKALINE PHOSPHATASE 81 U/L (45-117); CALCIUM, SERUM 8.1 MG/DL (8.5-10.4)
[2016-06-08 09:58] LABS: CA 125 II 61.1 U/ML (< 35.0)
[2016-06-09 03:59] LABS: HEMATOCRIT 38.1 % (36.0-48.0); HEMOGLOBIN 12.8 g/dL (12.0-16.0); MEAN CORPUS HGB CONC 33.6 g/dL (32.0-36.0); MEAN CORPUSCULAR HEMOGLOB 30.3 pg (26.0-34.0); MEAN CORPUSCULAR VOLUME 90.1 fL (80-100); PLATELET COUNT 245 10/3/uL (150-400); RBC DISTRIBUTION WIDTH 13.4 % (12.0-16.0); RED CELL COUNT 4.23 10/6/uL (4.0-5.6); WHITE BLOOD CELLS 7.2 10/3/uL (4.5-10.5)
[2016-06-09 04:00] LABS: MANUAL DIFF YES %
[2016-06-09 04:06] LABS: INTERNATIONAL NORMAL RATI 1.1 UNITS (-); PROTIME (NOT ORD) 14.2 SEC (12.0-14.5)
[2016-06-09 04:16] LABS: ALBUMIN 3.1 G/DL (3.5-5.0); ALKALINE PHOSPHATASE 85 U/L (45-117); BUN (BLOOD UREA NITROGEN) 3 MG/DL (6-23); CALCIUM, SERUM 7.9 MG/DL (8.5-10.4); CHLORIDE, SERUM 107 MMOL/L (96-112); CO2 (CARBON DIOXIDE) 26 MMOL/L (24-34); CREATININE 0.75 MG/DL (0.55-1.02); DIRECT BILIRUBIN 0.1 MG/DL (0.0-0.4); GFR AFRICAN AMERICAN 114 ML/MIN (>=60); GFR NON AFRICAN AMERICAN 98 ML/MIN (>=60); GLUCOSE, SERUM 96 MG/DL (60-99); INDIRECT BILIRUBIN(NOT ORDER) 0.3 MG/DL (0.1-0.9); POTASSIUM, SERUM 3.6 MMOL/L (3.5-5.3); SGOT(AST) 51 U/L (5-40); SGPT(ALT) 66 U/L (5-65); SODIUM, SERUM 142 MMOL/L (135-148); TOTAL BILIRUBIN 0.4 MG/DL (0-1.2); TOTAL PROTEIN 6.6 G/DL (6.0-8.5)
[2016-06-09 04:20] LABS: BAND NEUTROPHILS 3 %; LYMPHOCYTES 18 %; MONOCYTES 3 %; MONOCYTES ABSOLUTE (CALC) 0.22 10/3/uL (0.21-1.20); NEUTROPHILS ABSOLUTE (CALC) 5.69 10/3/uL (2.02-8.40); PLATELET ESTIMATE ADQ (ADEQUATE); RBC MORPHOLOGY NORM (NORMAL); SEGMENTED NEUTROPHIL (0) 76 %; TOTAL NUCLEATED CELLS 100
[2016-06-11 04:41] LABS: BASOPHILS 0 %; EOSINOPHILS 0 %; HEMATOCRIT 34.9 % (36.0-48.0); HEMOGLOBIN 11.9 g/dL (12.0-16.0); IMMATURE GRANULOCYTES 0.3 %; IMMATURE GRANULOCYTES ABSOLUTE 0.03 10/3/uL (0.0-0.11); LYMPHOCYTES 8.9 %; LYMPHOCYTES ABSOLUTE 1.01 10/3/uL (0.67-4.30); MEAN CORPUS HGB CONC 34.1 g/dL (32.0-36.0); MEAN CORPUSCULAR HEMOGLOB 30.4 pg (26.0-34.0); MEAN CORPUSCULAR VOLUME 89.3 fL (80-100); MEAN PLATELET VOLUME 9.8 fL (9.2-13.0); MONOCYTES 6.4 %; MONOCYTES ABSOLUTE 0.73 10/3/uL (0.21-1.20); NEUTROPHILS 84.4 %; NEUTROPHILS ABSOLUTE 9.63 10/3/uL (2.02-8.40); PLATELET COUNT 271 10/3/uL (150-400); RBC DISTRIBUTION WIDTH 13.4 % (12.0-16.0); RED CELL COUNT 3.91 10/6/uL (4.0-5.6)
[2016-06-11 04:49] LABS: BUN (BLOOD UREA NITROGEN) 3 MG/DL (6-23); CALCIUM, SERUM 8.6 MG/DL (8.5-10.4); CHLORIDE, SERUM 111 MMOL/L (96-112); CO2 (CARBON DIOXIDE) 23 MMOL/L (24-34); CREATININE 0.81 MG/DL (0.55-1.02); GFR AFRICAN AMERICAN 104 ML/MIN (>=60); GFR NON AFRICAN AMERICAN 90 ML/MIN (>=60); MANUAL DIFF NO %; POTASSIUM, SERUM 3.9 MMOL/L (3.5-5.3); SODIUM, SERUM 143 MMOL/L (135-148); WHITE BLOOD CELLS 11.4 10/3/uL (4.5-10.5)
[2016-06-11 04:52] LABS: GLUCOSE, SERUM 154 MG/DL (60-99)
[2016-06-12 05:37] LABS: BUN (BLOOD UREA NITROGEN) 3 MG/DL (6-23); CALCIUM, SERUM 8.1 MG/DL (8.5-10.4); CHLORIDE, SERUM 113 MMOL/L (96-112); CO2 (CARBON DIOXIDE) 22 MMOL/L (24-34); CREATININE 0.62 MG/DL (0.55-1.02); GFR AFRICAN AMERICAN 129 ML/MIN (>=60); GFR NON AFRICAN AMERICAN 111 ML/MIN (>=60); SODIUM, SERUM 144 MMOL/L (135-148)
[2016-06-12 05:47] LABS: BASOPHILS 0.3 %; BASOPHILS ABSOLUTE 0.02 10/3/uL (0.0-0.16); EOSINOPHILS 2.7 %; EOSINOPHILS ABSOLUTE 0.19 10/3/uL (0.0-0.53); HEMATOCRIT 34.3 % (36.0-48.0); HEMOGLOBIN 11.6 g/dL (12.0-16.0); IMMATURE GRANULOCYTES 0.1 %; IMMATURE GRANULOCYTES ABSOLUTE 0.01 10/3/uL (0.0-0.11); LYMPHOCYTES 33.5 %; LYMPHOCYTES ABSOLUTE 2.39 10/3/uL (0.67-4.30); MEAN CORPUS HGB CONC 33.8 g/dL (32.0-36.0); MEAN CORPUSCULAR HEMOGLOB 30.6 pg (26.0-34.0); MEAN CORPUSCULAR VOLUME 90.5 fL (80-100); MEAN PLATELET VOLUME 10.3 fL (9.2-13.0); MONOCYTES 7.3 %; MONOCYTES ABSOLUTE 0.52 10/3/uL (0.21-1.20); NEUTROPHILS 56.1 %; PLATELET COUNT 274 10/3/uL (150-400); RBC DISTRIBUTION WIDTH 13.8 % (12.0-16.0); RED CELL COUNT 3.79 10/6/uL (4.0-5.6); WHITE BLOOD CELLS 7.1 10/3/uL (4.5-10.5)
[2016-06-12 05:51] LABS: GLUCOSE, SERUM 98 MG/DL (60-99); MANUAL DIFF NO %
[2016-06-13 07:25] LABS: BASOPHILS 0.5 %; BASOPHILS ABSOLUTE 0.04 10/3/uL (0.0-0.16); EOSINOPHILS 4.3 %; EOSINOPHILS ABSOLUTE 0.33 10/3/uL (0.0-0.53); HEMATOCRIT 37.2 % (36.0-48.0); HEMOGLOBIN 12.5 g/dL (12.0-16.0); IMMATURE GRANULOCYTES 0.3 %; IMMATURE GRANULOCYTES ABSOLUTE 0.02 10/3/uL (0.0-0.11); LYMPHOCYTES 30.5 %; LYMPHOCYTES ABSOLUTE 2.32 10/3/uL (0.67-4.30); MEAN CORPUS HGB CONC 33.6 g/dL (32.0-36.0); MEAN CORPUSCULAR HEMOGLOB 30.6 pg (26.0-34.0); MEAN PLATELET VOLUME 9.9 fL (9.2-13.0); MONOCYTES 7.8 %; MONOCYTES ABSOLUTE 0.59 10/3/uL (0.21-1.20); NEUTROPHILS 56.6 %; NEUTROPHILS ABSOLUTE 4.31 10/3/uL (2.02-8.40); PLATELET COUNT 310 10/3/uL (150-400); RBC DISTRIBUTION WIDTH 13.8 % (12.0-16.0); RED CELL COUNT 4.09 10/6/uL (4.0-5.6); WHITE BLOOD CELLS 7.6 10/3/uL (4.5-10.5)
[2016-06-13 07:28] LABS: MANUAL DIFF NO %
[2016-06-13 07:33] LABS: BUN (BLOOD UREA NITROGEN) 2 MG/DL (6-23); CALCIUM, SERUM 8.6 MG/DL (8.5-10.4); CHLORIDE, SERUM 110 MMOL/L (96-112); CO2 (CARBON DIOXIDE) 25 MMOL/L (24-34); CREATININE 0.72 MG/DL (0.55-1.02); GFR AFRICAN AMERICAN 120 ML/MIN (>=60); GFR NON AFRICAN AMERICAN 103 ML/MIN (>=60); GLUCOSE, SERUM 92 MG/DL (60-99); POTASSIUM, SERUM 3.9 MMOL/L (3.5-5.3); SODIUM, SERUM 142 MMOL/L (135-148)
[2016-06-15] MEDS ORDERED: HABIT21 TOP (11:29)
[2016-06-15] MEDS ORDERED: MULTI-VIT HP PO (11:29)
[2016-06-15] MEDS ORDERED: PROTONIX PO (11:30)
[2016-06-15] MEDS ORDERED: PERCOCET 10/3251 TAB PO (11:30)
== END 2016-06-15 12:59 | disposition home or self-care (01) | DRG 330 ==
LOC: ER 19:27 → 4SO 23:34 → 4EA 06-08 09:41
PROVIDERS: Emergency Medicine; Internal Medicine; Internal Medicine Gastroenterology; Nurse Practitioner Family; Surgery
PROC: 0DBQ8ZX Excision of Anus, Via Natural or Artificial Opening Endoscopic, Diagnostic (ICD-10-PCS; principal; 2016-06-09 07:00)
PROC: 0DTN0ZZ Resection of Sigmoid Colon, Open Approach (ICD-10-PCS; 2016-06-10)
PROC: 0UT00ZZ Resection of Right Ovary, Open Approach (ICD-10-PCS; 2016-06-10)
DX: C18.7 Malignant neoplasm of sigmoid colon (principal); C78.6 Secondary malignant neoplasm of retroperitoneum and peritoneum; F17.210 Nicotine dependence, cigarettes, uncomplicated; F32.9 Major depressive disorder, single episode, unspecified; F41.9 Anxiety disorder, unspecified; I34.1 Nonrheumatic mitral (valve) prolapse; K21.9 Gastro-esophageal reflux disease without esophagitis
CPT/HCPCS: 71010; 71260; 74177; 80048; 80053; 80076; 81001; 82378; 83036; 83615; 83690; 83735; 84100; 84439; 84443; 84703; 85025; 85610; 85730; 86301; 86304; 88305; 88307; 88309; 88341; 88342; 96374; 96375; 96376; 99285; A9270-GY; C9113; J0690; J1170; J1885; J2250; J2270; J2405; J2710; J2795; J3010; Q9967

== ENCOUNTER 2016-07-03 06:40 | Day surgery (SDC) | payer OTHER ==
[2016-06-26 15:36] LABS: BASOPHILS 0.5 %; BASOPHILS ABSOLUTE 0.05 10/3/uL (0.0-0.16); EOSINOPHILS 3.7 %; EOSINOPHILS ABSOLUTE 0.36 10/3/uL (0.0-0.53); HEMATOCRIT 36.7 % (36.0-48.0); HEMOGLOBIN 12.5 g/dL (12.0-16.0); IMMATURE GRANULOCYTES 0.2 %; IMMATURE GRANULOCYTES ABSOLUTE 0.02 10/3/uL (0.0-0.11); LYMPHOCYTES 28.1 %; LYMPHOCYTES ABSOLUTE 2.72 10/3/uL (0.67-4.30); MEAN CORPUS HGB CONC 34.1 g/dL (32.0-36.0); MEAN PLATELET VOLUME 10.3 fL (9.2-13.0); MONOCYTES 4.9 %; MONOCYTES ABSOLUTE 0.47 10/3/uL (0.21-1.20); NEUTROPHILS 62.6 %; NEUTROPHILS ABSOLUTE 6.07 10/3/uL (2.02-8.40); PLATELET COUNT 368 10/3/uL (150-400); RBC DISTRIBUTION WIDTH 13.3 % (12.0-16.0); RED CELL COUNT 4.17 10/6/uL (4.0-5.6); WHITE BLOOD CELLS 9.7 10/3/uL (4.5-10.5)
[2016-06-26 15:38] LABS: MANUAL DIFF NO %
[2016-06-26 16:23] LABS: CALCIUM, SERUM 9.3 MG/DL (8.5-10.4); CHLORIDE, SERUM 107 MMOL/L (96-112); CO2 (CARBON DIOXIDE) 25 MMOL/L (24-34); CREATININE 0.77 MG/DL (0.55-1.02); GFR AFRICAN AMERICAN 110 ML/MIN (>=60); GFR NON AFRICAN AMERICAN 95 ML/MIN (>=60); GLUCOSE, SERUM 90 MG/DL (60-99); SGOT(AST) 19 U/L (5-40); SGPT(ALT) 30 U/L (5-65); SODIUM, SERUM 141 MMOL/L (135-148); TOTAL BILIRUBIN 0.2 MG/DL (0-1.2); TOTAL PROTEIN 7.3 G/DL (6.0-8.5)
[2016-06-26 16:25] LABS: A/G RATIO 1.1 (0.7-1.9); ALBUMIN 3.9 G/DL (3.5-5.0); ALKALINE PHOSPHATASE 128 U/L (45-117); BUN (BLOOD UREA NITROGEN) 6 MG/DL (6-23); GLOBULIN 3.4 G/DL (2.5-4.1)
--- NOTE | ~2016-07-03 | OP ---
Record Of Operation [facility] [address] [place]. [address] NAME: CLAYTON ZARATE : 71 STATUS : [facility]#: [id number] AGE: 40 ADM/REG DATE : 07/03/16 MR#: [id number] REPORT SERV DATE: 07/06/16 DICTATED BY: JULIO STRANGE III DATE: 07/03/16 REPORT STATUS : Draft TRANSCRIBED BY: MODDolly DATE: 07/03/16 DATE OF PROCEDURE: 07/03/2016 PREOPERATIVE DIAGNOSIS: Colon cancer, with need for Port-A-Cath placement to allow for chronic IV access for chemotherapy. POSTOPERATIVE DIAGNOSIS: Colon cancer, with need for Port-A-Cath placement to allow for chronic IV access for chemotherapy. PROCEDURE: Right subclavian vein Port-A-Cath placement. ANESTHESIA: General with intubation. COMPLICATIONS: None. ESTIMATED BLOOD LOSS: Less than 5 mL. SPECIMENS: None. DRAINS: None. LAP AND SPONGE COUNT: Correct x3. BRIEF HISTORY: This 40-year-old female was recently diagnosed with stage IV colorectal cancer. We have been asked by her medical oncologist to place a Port-A-Cath to allow for chronic IV access for chemotherapy. On this procedure, the risks, benefits, and alternatives, including not limited to the risk for bleeding, infection, pneumothorax, air embolus, pericardial tamponade, failure of the port to function, infection of the port, or subclavian vein thrombosis requiring removal the port, dislodgement of the Port-A-Cath tubing requiring extraction, and unforeseen complications including deep venous thrombosis, pulmonary embolus, myocardial infarction, stroke, pneumonia, and , were fully explained the patient prior to surgery. Her questions were answered. She understood the risks and agreed to surgery as planned. DESCRIPTION OF PROCEDURE: After being appropriately identified, and after discussing risks of surgery with the patient again in the preoperative area, the patient was taken to the operating room and placed in the supine position on the operating room table. General anesthesia was administered, and the patient was intubated without difficulty. The upper chest and neck areas were prepped and draped sterilely in the usual fashion. After an appropriate "time-out" per JCAHO standards, an -gauge needle was used to identify the right subclavian vein. The vein was identified on the first pass of the needle. A guidewire was passed through the needle and the needle was removed. Fluoroscopy was performed, confirming the tip of the guidewire to be in the correct position of superior vena cava. A small transverse incision was then made at the exit site of the guidewire from the skin. A subcutaneous infraclavicular pocket was made of the appropriate size for the Port-A-Cath housing. The Port-A-Cath housing was connected to the tubing. The Port-A-Cath Record Of Counts include 234 beds at the [facility] [address] [place]. [address] NAME: CLAYTON ZARATE : 71 STATUS : [facility] PAT#: [id number] AGE: 40 ADM/REG DATE : 07/03/16 MR#: [id number] REPORT SERV DATE: 07/06/16 DICTATED BY: JULIO STRANGE III DATE: 07/03/16 REPORT STATUS : Draft TRANSCRIBED BY: MODL DATE: 07/03/16 housing and tubing were flushed with a heparin solution, and the tubing was cut to the appropriate length. The introducer was then placed over the guidewire. The guidewire and inner dilator were removed. The Port-A-Cath tubing was then placed through the sheath as the sheath was peeled away. This went very smoothly. The Port-A-Cath housing was positioned in the infraclavicular pocket. It was secured in place with 2-0 silk sutures. It was accessed with a Bolaños needle and noted to aspirate blood easily. It was then flushed with heparin solution noted to flush easily. Repeat fluoroscopy was performed, confirming the tip of the Port-A-Cath tubing to be in the correct position in superior vena cava. Hemostasis was assured. The subcutaneous tissue was closed with a running 3-0 Vicryl suture. The skin was closed with running subcuticular 4-0 Monocryl stitch. The incision was injected with 0.5% Marcaine. Dressings were applied. Anesthesia was reversed, and the patient was taken to recovery room in stable condition. The patient tolerated the procedure well. The patient will be discharged later when stable and comfortable after the chest x-ray has been cleared per Radiology. The patient's family was advised that the wound should be kept clean and dry for 48 hours, that there should be no driving for 2-3 days after surgery or while using narcotics, and the patient shall resume usual medications. The patient was asked to return in two weeks for followup or sooner for any fever, chills, wound drainage, or other problems prior to that time. RHJ/MODL Julio Strange III, M.D. / [id number] CC: Vernon Sosa III
--- NOTE | ~2016-07-03 | PREOPHP ---
PreOp History and Physical [place] [place]. [address] NAME: CLAYTON ZARATE : [birth year] STATUS : [facility]#: [id number] AGE: 40 ADM/REG DATE : 07/03/16 MR#: [id number] REPORT SERV DATE: 07/03/16 DICTATED BY: JULIO STRANGE III DATE: 06/24/16 REPORT STATUS : Draft TRANSCRIBED BY: SAW DATE: 06/24/16 HISTORY OF PRESENT ILLNESS: This 40-year-old female comes to the operating room for subclavian vein Port-A-Cath placement to allow for chronic IV access for chemotherapy. The patient has recently been diagnosed with stage IV colon cancer. She underwent a recent emergent sigmoid colectomy with colostomy for an obstructing cancer of the sigmoid colon. She was found to have carcinomatosis. She comes to the operating room now for subclavian vein Port-A-Cath placement to allow for chronic IV access for chemotherapy. PAST MEDICAL HISTORY: 1. History of stage IV colon cancer as above. 2. Mitral valve prolapse. 3. Anxiety. 4. Bipolar disorder. 5. Depression. 6. Degenerative joint disease. MEDICATIONS: As per medication list. PHYSICAL EXAMINATION: OBJECTIVE: GENERAL: Physical exam Reveals a somewhat obese female, in no acute distress. She is alert and oriented x3. HEENT: Unremarkable. NEUROLOGIC: Cranial nerves 2 through 12 are normal. LUNGS: Clear. CARDIAC: Normal. ABDOMEN: Soft. Nontender. ASSESSMENT: 1. A 40-year-old female with stage IV colon cancer, with need for Port-A-Cath placement to allow for chronic IV access for chemotherapy. 2. History of bipolar disorder. 3. Anxiety. PLAN: The patient comes to the operating room now for subclavian vein Port-A-Cath placement. This procedure, the risks, benefits, and alternatives, including not limited to the risk for bleeding, infection, pneumothorax, air embolus, pericardial tamponade, failure of the port to function, infection of the port or subclavian vein thrombosis requiring removal of the port, dislodgement of the Port-A-Cath tubing requiring extraction, and unforeseen complications including deep venous thrombosis, pulmonary embolus, myocardial infarction, stroke, pneumonia, and , have been explained to the patient prior to surgery. All her questions have been answered. She understands the risks and agrees to the surgery as planned. J/MODL PreOp History and Physical [place] [address] [place]. [address] NAME: CLAYTON ZARATE : [birth year] STATUS : [facility] PAT#: [id number] AGE: 40 ADM/REG DATE : 07/03/16 MR#: [id number] REPORT SERV DATE: 07/03/16 DICTATED BY: JULIO STRANGE III DATE: 06/24/16 REPORT STATUS : Draft TRANSCRIBED BY: SAW DATE: 06/24/16 Julio Strange III, M.D. / [id number]
[~2016-07-03 06:40] MED LIST: AFRIN15 NAS; BENTYL10 PO; EFFEXOR XR150 MG PO; HABIT21 TOP; MULTI-VIT HP PO; NORCO1 TA1 PO; PERCOCET 10/3251 TAB PO; PROTONIX PO; TOPAMAX100 PO; X25 PO
== END 2016-07-03 11:31 | disposition home or self-care (01) ==
LOC: SDC 06:40
PROVIDERS: Surgery
PROC: 05H533Z Insertion of Infusion Device into Right Subclavian Vein, Percutaneous Approach (ICD-10-PCS; principal; 2016-07-03 07:45)
DX: C18.9 Malignant neoplasm of colon, unspecified (principal); F31.9 Bipolar disorder, unspecified; I34.1 Nonrheumatic mitral (valve) prolapse; Z79.899 Other long term (current) drug therapy
CPT/HCPCS: 71010; 71020; 77001; 80053; 85025; 93005; A9270-GY; C1751; J0690; J2250; J2270; J2405; J3010